=== PATIENT | female | born 1955 ===

== ENCOUNTER 2017-03-01 14:35 | Emergency (ER) | payer SELFPAY ==
[~2017-03-01] VITALS: Ht 157.5 cm; Wt 89.4 kg
[2017-03-01 14:43] VITALS: BP 157/107
[2017-03-01 15:43] LABS: Basophils # (auto) 0.2 uL; Basophils % (auto) 2.9 % (0.0-2.0); Eosinophils # (auto) 0.1 uL; Eosinophils % (auto) 0.9 % (0.0-7.0); Hematocrit 50.2 % (36.0-46.0); Hemoglobin 17.3 g/dL (12.2-16.2); Lymphocytes # (auto) 1.6 uL; Lymphocytes % (auto) 25.2 % (10.0-50.0); Mean Corpuscular Hemoglobin 33.9 pg (28.0-32.0); Mean Corpuscular Hgb Conc. 34.5 g/dL (32.0-36.0); Mean Corpuscular Volume 98.3 fL (80.0-100.0); Mean Platelet Volume 10.1 fL (6.9-10.8); Monocytes # (auto) 0.6 uL; Monocytes % (auto) 9.1 % (0.0-12.0); Neutrophils % (auto) 61.9 % (37.0-80.0); Nucleated Red Blood Cells % 0.2 %; Platelet Count (auto) 153 10^3/uL (140-450); Red Cell Distribution Width 12.8 % (11.8-14.3); White Blood Cell 6.4 10^3/uL (4.4-10.8)
[2017-03-01 16:04] LABS: Albumin 3.4 g/dL (3.4-5.0); BUN/Creatinine Ratio 13.9; Calcium 9.2 mg/dL (8.5-10.1); Potassium 4.4 mmol/L (3.5-5.1); Total Protein 7.8 g/dL (6.4-8.2)
[2017-03-01 18:02] LABS: Urine Bilirubin Negative (Negative); Urine Blood TRACE /uL (Negative); Urine Color Yellow (Yellow); Urine Glucose 4+ mg/dL (Normal); Urine Ketone Negative (Negative); Urine Nitrite Negative (Negative); Urine RBC 2 /hpf (0 - 4); Urine Squamous Epithelial Cell FEW /hpf (<5); Urine Urobilinogen Normal (Negative); Urine pH 5.5 (5.0-8.0)
== END 2017-03-01 20:27 | disposition left against medical advice (07) ==
LOC: ER 14:35
DX: R53.1 Weakness (principal); Z53.21 Procedure and treatment not carried out due to patient leaving prior to being seen by health care provider
CPT/HCPCS: 36415; 80053; 81001; 84484; 85025; 93005